=== PATIENT | male | born 1935 | race Caucasian/White ===

== ENCOUNTER → 2018-10-06 | Day surgery (SDC) | payer OTHER, MEDICARE ==
[2018-10-03 11:02] LABS: BASOPHILS # (AUTO) 0.1 X10'3 (0-0.2); BASOPHILS % (AUTO) 0.6 % (0-1); EOSINOPHILS # (AUTO) 0.2 X10'3 (0-0.9); EOSINOPHILS % (AUTO) 2.2 % (0-6); HEMATOCRIT 40.1 % (42.0-52.0); HEMOGLOBIN 13.4 g/dl (14.0-17.9); LYMPHOCYTES # (AUTO) 1.8 X10'3 (1.1-4.8); LYMPHOCYTES % (AUTO) 21.4 % (21-51); MEAN CORPUSCULAR HEMOGLOBIN 29.6 PG (27.0-31.0); MEAN CORPUSCULAR HGB CONC 33.5 g/dL (33.0-36.5); MEAN CORPUSCULAR VOLUME 88.2 FL (78-98); MEAN PLATELET VOLUME 7.9 FL (7.4-10.4); MONOCYTES # (AUTO) 0.4 X10'3 (0-0.9); MONOCYTES % (AUTO) 4.8 % (2-12); NEUTROPHILS # (AUTO) 6.1 X10'3 (1.8-7.7); PLATELET COUNT 224 X10'3 (140-440); RED BLOOD COUNT 4.54 X10'6 (4.70-6.10); RED CELL DISTRIBUTION WIDTH 14.3 % (11.5-14.5); WHITE BLOOD COUNT 8.6 X10'3 (4.5-11.0)
[2018-10-03 11:05] LABS: ALBUMIN 3.2 G/DL (3.4-5.0); ANION GAP 8 (8-16); BLOOD UREA NITROGEN 23 MG/DL (7-18); BUN/CREATININE RATIO 17.6 (5.4-32.0); CALCIUM 8.8 MG/DL (8.5-10.1); CHLORIDE 102 MMOL/L (99-107); CREATININE 1.31 MG/DL (0.60-1.10); GLUCOSE 140 MG/DL (70-104); POTASSIUM 4.3 MMOL/L (3.5-5.1); SODIUM 138 MMOL/L (135-145); TOTAL CARBON DIOXIDE 27.6 MMOL/L (24-32); eGFR 53 ML/MIN
[2018-10-03 11:14] LABS: PARTIAL THROMBOPLASTIN TIME 34 SECONDS (22-32); PROTHROMBIN TIME 10.4 SECONDS (9.0-12.0)
[~2018-10-06] VITALS: Ht 182.9 cm; Wt 123.9 kg
[~2018-10-06] MED LIST: ALPR-623 PO; AMLO10TA PO; APIX5TAB3 PO; ASPI-1264 PO; ASPI81TA30 PO; BETA1TAB18 PO; CHOL400T32 PO; CLINDAMYCIN PO; DIPH25CA83 PO; ENAL20TA75 PO; FINA5TAB11 PO; FURO-150 PO; FURO40TA4 PO; GABA-341 PO; GABA-534 PO; GLIM1TAB46 PO; HYT1T PO; ISOS10TA54 PO; ISOS30TA6 PO; LIDOcaine 1% (10mg/ml)w/preservative injection 20ml MDV ONE; LOP25T PO; LORazepam 0.5 MG tablet PO ONE; MULT-785 PO; NOR5T PO; OMEG1CAP54 PO; OMEP-84 PO; OXYB5TAB80 PO; POTA10TA19 PO; PRED20TA PO; RANI300T7 PO; RISP2TAB97 PO; SAXA2.5T PO; SERT100T PO; SIMV20TA5 PO; TAMS0.4C32 PO; ZOL50T PO; ZOLP5TAB8 PO; fentaNYL/PF 50MCG/1 ML 2ML syringe ONE; iohexol 350MG/ML 100ml bottle IV ONE; midazolam 2 mg/2 ml injection ONE; normal saline 1000ml 1,000 ML IV SCH
[2018-10-06 12:30] VITALS: BP 141/66
--- NOTE | 2018-10-06 18:20 | NUR ---
Patient arrived on floor via gurney from chemistry laboratory technician after receiving report from Kyra SIMON. Patient transferred using slide board, vitals taken, NS infusing @ 100ml/hr. Groin site CDI, no drainage, ecchymosis, or hematoma present. Patient has no complaint of pain at this time, is alert and oriented, daughter at bedside belongings accompanied. Will continue to monitor closely
[2018-10-06 18:30] VITALS: BP 142/58
[2018-10-06 18:45] VITALS: BP 148/78
[2018-10-06 19:00] VITALS: BP 148/78
[2018-10-06 21:45] VITALS: BP 157/76
--- NOTE | 2018-10-06 21:45 | NUR ---
Reassessment of groin site, CDI, no sign of hematoma or bruising. Patient vitals taken, stable at this time, no complaint of pain. Ambulated patient with front wheel walker 20 feet no issue. Patient and daughter given discharge instructions, verbalized understanding, signed discharge paperwork copy in chart. Patient dressed with minimal assistance, IV removed and escorted out of building via wheelchair by RN
== END | disposition home or self-care (01) ==
LOC: SSTAY O 11:49
PROVIDERS: ATTEND Internal Medicine Interventional Cardiology
DX: I25.10 Atherosclerotic heart disease of native coronary artery without angina pectoris (principal); J44.9 Chronic obstructive pulmonary disease, unspecified; E11.22 Type 2 diabetes mellitus with diabetic chronic kidney disease; N18.9 Chronic kidney disease, unspecified; I12.0 Hypertensive chronic kidney disease with stage 5 chronic kidney disease or end stage renal disease; E11.59 Type 2 diabetes mellitus with other circulatory complications; I48.92 Unspecified atrial flutter; Z79.899 Other long term (current) drug therapy; G47.33 Obstructive sleep apnea (adult) (pediatric); M81.0 Age-related osteoporosis without current pathological fracture; Z85.51 Personal history of malignant neoplasm of bladder; Z95.0 Presence of cardiac pacemaker; Z82.49 Family history of ischemic heart disease and other diseases of the circulatory system; Z88.0 Allergy status to penicillin; Z88.2 Allergy status to sulfonamides; Z88.8 Allergy status to other drugs, medicaments and biological substances
CPT/HCPCS: 36415; 80048; 82948; 85025; 85610; 85730; 93005; 93458; 96360; 96361; 99152; 99153; A6257; J1644; J2001; J2250; J3010; J7030; Q9967; A4620; C1769

== ENCOUNTER 2019-01-05 21:02 | Emergency (ER) | payer MEDICARE, OTHER ==
[~2019-01-05] VITALS: Ht 182.9 cm; Wt 127.0 kg
[~2019-01-05 21:02] MED LIST changes: -ALPR-623 PO; -ASPI-1264 PO; -BETA1TAB18 PO; -CHOL400T32 PO; -CLINDAMYCIN PO; -FURO-150 PO; -GABA-341 PO; -GLIM1TAB46 PO; -HYT1T PO; -ISOS10TA54 PO; -LIDOcaine 1% (10mg/ml)w/preservative injection 20ml MDV ONE; -LORazepam 0.5 MG tablet PO ONE; -MULT-785 PO; -NOR5T PO; -OMEG1CAP54 PO; -OMEP-84 PO; -RISP2TAB97 PO; -ZOL50T PO; -ZOLP5TAB8 PO; -fentaNYL/PF 50MCG/1 ML 2ML syringe ONE; -iohexol 350MG/ML 100ml bottle IV ONE; -midazolam 2 mg/2 ml injection ONE; -normal saline 1000ml 1,000 ML IV SCH
[2019-01-05 21:23] LABS: BASOPHILS # (AUTO) 0.1 X10'3 (0-0.2); EOSINOPHILS # (AUTO) 0.2 X10'3 (0-0.9); EOSINOPHILS % (AUTO) 2.4 % (0-6); HEMATOCRIT 38.7 % (42.0-52.0); HEMOGLOBIN 13.1 g/dl (14.0-17.9); LYMPHOCYTES # (AUTO) 2.1 X10'3 (1.1-4.8); LYMPHOCYTES % (AUTO) 26.4 % (21-51); MEAN CORPUSCULAR HEMOGLOBIN 29.8 PG (27.0-31.0); MEAN CORPUSCULAR HGB CONC 33.7 g/dL (33.0-36.5); MEAN CORPUSCULAR VOLUME 88.4 FL (78-98); MEAN PLATELET VOLUME 8.1 FL (7.4-10.4); MONOCYTES # (AUTO) 0.5 X10'3 (0-0.9); NEUTROPHILS % (AUTO) 64.2 % (42-75); PLATELET COUNT 193 X10'3 (140-440); RED BLOOD COUNT 4.38 X10'6 (4.70-6.10); RED CELL DISTRIBUTION WIDTH 13.6 % (11.5-14.5); WHITE BLOOD COUNT 7.9 X10'3 (4.5-11.0)
[2019-01-05 21:38] LABS: ALANINE AMINOTRANSFERASE 25 U/L (12-78); ALBUMIN 3.4 G/DL (3.4-5.0); ALBUMIN/GLOBULIN RATIO 0.9 (1.1-1.5); ALKALINE PHOSPHATASE 85 IU/L (46-116); ANION GAP 7 (8-16); ASPARTATE AMINO TRANSFERASE 17 U/L (10-37); BILIRUBIN,TOTAL 0.2 MG/DL (0.1-1.0); BLOOD UREA NITROGEN 23 MG/DL (7-18); BUN/CREATININE RATIO 11.6 (5.4-32.0); CALCIUM 9.2 MG/DL (8.5-10.1); CHLORIDE 104 MMOL/L (99-107); CREATININE 1.99 MG/DL (0.60-1.10); GLUCOSE 124 MG/DL (70-104); SODIUM 142 MMOL/L (135-145); eGFR 32 ML/MIN
[2019-01-05 21:52] LABS: PARTIAL THROMBOPLASTIN TIME 28 SECONDS (22-32)
--- NOTE | 2019-01-05 21:54 | NUR ---
Patient resting comfortably with family at bedside with no CP or difficulty breathing. Patient updated on POC.
[2019-01-05 22:09] VITALS: BP 146/71
== END 2019-01-05 22:11 | disposition home or self-care (01) ==
LOC: ER 21:03
DX: R07.89 Other chest pain (principal); I11.0 Hypertensive heart disease with heart failure; I50.9 Heart failure, unspecified; E78.00 Pure hypercholesterolemia, unspecified; I25.2 Old myocardial infarction; E11.9 Type 2 diabetes mellitus without complications; Z90.49 Acquired absence of other specified parts of digestive tract; Z95.0 Presence of cardiac pacemaker; Z79.82 Long term (current) use of aspirin; Z88.0 Allergy status to penicillin; Z88.2 Allergy status to sulfonamides; Z88.8 Allergy status to other drugs, medicaments and biological substances; Z88.6 Allergy status to analgesic agent; Z91.041 Radiographic dye allergy status
CPT/HCPCS: 36415; 71045; 80053; 82948; 83880; 84484; 85025; 85610; 85730; 93005; 99284